=== PATIENT | male | born 1925 | race Caucasian/White ===

== ENCOUNTER 2016-07-30 11:37 | Observation (INO) | payer MEDICARE ==
[~2016-07-30] VITALS: Ht 177.8 cm; Wt 111.5 kg
[~2016-07-30 11:37] MED LIST: ADVA100A INH; ASPI81TA67 PO; FLUT1SPR22 EACH NARE; FURO40TA PO; IPRASOL INH; LISI-519 PO; MULT1TAB84 PO; OMEP20TA PO
[2016-07-30 11:38] VITALS: BP 142/69; PULSE 94; RESP 20; TEMP 97.5; O2SAT 97
[2016-07-30 11:56] VITALS: BP 114/71; PULSE 78; RESP 28; O2SAT 95
[2016-07-30] MEDS ORDERED: SODIUM CHLORIDE 0.9% FLUSH 10 ML FLUSH IVF PRN (12:00)
--- NOTE | 2016-07-30 12:01 | PD ---
HPI Chief Complaint: chest pain Time Seen by Provider: 11:48 Travel History International Travel<30 days: No Contact w/Intl Traveler<30days: No Traveled to known affect area: No History of Present Illness HPI 89-year-old male with history of heart block with pacemaker placement, sleep apnea, presents for evaluation of left-sided chest pain. Symptoms started 2 days ago. He describes it as a pulsating pain localized in left side of his chest a few inches inferior to his pacemaker which comes and goes. The pain seems to be reproduced with inspiration. Nothing seems to make it better. He is not currently experiencing any pain as we speak. He called his cardiologists office, Dr. Garcia, who recommended that he come here for further evaluation. He does endorse slight dyspnea as well. Denies any cough or congestion, nausea or vomiting, diaphoresis, recent travel, recent surgery, he does report that in April 2016 his pacemaker was replaced. Denies any history of DVT or PE. He has no other complaints at this time. PFSH Past Medical History Asthma: No Heart Rhythm Problems: Yes (PACEMAKER) Cancer: No Cardiovascular Problems: Yes High Cholesterol: Yes Chest Pain: No Congestive Heart Failure: No COPD: No Diabetes: No Diminished Hearing: Yes Endocrine: No Gastrointestinal Disorders: Yes (GALLBLADDER REMOVED, GERD) GERD: Yes Glaucoma: No Genitourinary: Yes (ENLARGED PROSTATE) Hepatitis: No Hiatal Hernia: No Hypertension: No Musculoskeletal: Yes (ARTHRITIS IN HANDS/SHOULDERS/KNEES, FUSED VERTEBRAE) Neurologic: Yes (INOPERABLE BRAIN TUMOR) Psychiatric: No Reproductive: Yes (BPH) Respiratory: Yes Immunizations Current: No Sleep Apnea: Yes (USES CPAP AT HOME) Thyroid Disease: No Past Surgical History Body Medical Devices: PACEMAKER Cardiac Surgery: Yes (PACEMAKER) Cholecystectomy: Yes Joint Replacement: Yes (BILATERAL KNEE) Pacemaker: Yes Other Surgery: Yes (SEVERAL BACK SURGERIES) Social History Alcohol Use: No Tobacco Use: No (QUIT 40 YEARS AGO) Substance Use: No Allergies-Medications (Allergen,Severity, Reaction): Coded Allergies: Celebrex (Verified Allergy, Severe, SWELLING, 04/22/16) Penicillin (Verified Allergy, Severe, HIVES, 04/22/16) Sulfa (Verified Allergy, Severe, HIVES, 04/22/16) Codeine (Verified Adverse Reaction, Severe, Hallucinations, 04/22/16) Reported Meds & Prescriptions Reported Meds & Active Scripts Active Reported Multivitamin Adults (Multiple Vitamins W/ Minerals) 1 Tab 1 Tab PO DAILY Omeprazole 20 Mg Tab 20 Mg PO DAILY Duoneb (Ipratropium-Albuterol Neb) 0.5-2.5 Mg/3 Ml Neb 1 Nebule INH QID Advair Diskus Inh (Fluticasone-Salmeterol Inh) 100-50 Mcg/Blist Aer 1 Puff INH BID Rinse mouth after use. Furosemide 40 Mg Tab 40 Mg PO DAILY Lisinopril 5 Mg Tab 2.5 Mg PO DAILY Aspirin DR (Aspirin) 81 Mg Tabdr 81 Mg PO DAILY Review of Systems Except as stated in HPI: all other systems reviewed are Neg Physical Exam Narrative GENERAL: Pleasant well-developed well-nourished male in no acute distress SKIN: Warm and dry. HEAD: Atraumatic. Normocephalic. EYES: Pupils equal and round. No scleral icterus. No injection or drainage. ENT: No nasal bleeding or discharge. Mucous membranes pink and moist. NECK: Trachea midline. No JVD. CARDIOVASCULAR: Regular rate and rhythm. No murmur appreciated. RESPIRATORY: No accessory muscle use. Clear to auscultation. Breath sounds equal bilaterally. GASTROINTESTINAL: Abdomen soft, non-tender, nondistended. Hepatic and splenic margins not palpable. MUSCULOSKELETAL: No obvious deformities. No reproducible chest wall tenderness to palpation. No lower extremity tenderness to palpation. No asymmetrical lower extremity edema. NEUROLOGICAL: Awake and alert. No obvious cranial nerve deficits. Motor grossly within normal limits. Normal speech. PSYCHIATRIC: Appropriate mood and affect; insight and judgment normal. Data Data Last Documented VS Vital Signs Date Time Temp Pulse Resp B/P Pulse Ox O2 Delivery O2 Flow Rate FiO2 07/30/16 12:15 82 28 Room Air 07/30/16 11:56 114/71 95 07/30/16 11:38 97.5 Orders Electrocardiogram (07/30/16 ) Basic Metabolic Panel (Bmp) (07/30/16 11:57) B-Type Natriuretic Peptide (07/30/16 11:57) Ckmb (Isoenzyme) Profile (07/30/16 11:57) Complete Blood Count With Diff (07/30/16 11:57) D-Dimer (07/30/16 11:57) Magnesium (Mg) (07/30/16 11:57) Prothrombin Time / Inr (Pt) (07/30/16 11:57) Act Partial Throm Time (Ptt) (07/30/16 11:57) Troponin I (07/30/16 11:57) Chest, Single Ap (07/30/16 11:57) Ecg Monitoring (07/30/16 11:57) Bilateral Bp Monitoring (07/30/16 11:57) Iv Access Insert/Monitor (07/30/16 11:57) Oximetry (07/30/16 11:57) Oxygen Administration (07/30/16 11:57) Sodium Chloride 0.9% Flush (Ns Flush) (07/30/16 12:00) Ct Pulmonary Angiogram (07/30/16 12:49) CKMB (07/30/16 12:10) CKMB% (07/30/16 12:10) Iohexol 350 Inj (Omnipaque 350 Inj) (07/30/16 14:36) Labs Laboratory Tests Test 07/30/16 12:10 White Blood Count 6.0 TH/MM3 Red Blood Count 5.06 MIL/MM3 Hemoglobin 14.2 GM/DL Hematocrit 43.0 % Mean Corpuscular Volume 85.0 FL Mean Corpuscular Hemoglobin 28.1 PG Mean Corpuscular Hemoglobin 33.1 % Concent Red Cell Distribution Width 16.7 % Platelet Count 144 TH/MM3 Mean Platelet Volume 8.1 FL Neutrophils (%) (Auto) 65.5 % Lymphocytes (%) (Auto) 22.6 % Monocytes (%) (Auto) 8.2 % Eosinophils (%) (Auto) 3.2 % Basophils (%) (Auto) 0.5 % Neutrophils # (Auto) 3.9 TH/MM3 Lymphocytes # (Auto) 1.4 TH/MM3 Monocytes # (Auto) 0.5 TH/MM3 Eosinophils # (Auto) 0.2 TH/MM3 Basophils # (Auto) 0.0 TH/MM3 CBC Comment DIFF FINAL Differential Comment Prothrombin Time 11.4 SEC Prothromb Time International 1.0 RATIO Ratio Activated Partial 29.9 SEC Thromboplast Time D-Dimer Quantitative (PE/DVT) 2.51 MG/L FEU Sodium Level 137 MEQ/L Potassium Level 4.3 MEQ/L Chloride Level 100 MEQ/L Carbon Dioxide Level 31.3 MEQ/L Anion Gap 6 MEQ/L Blood Urea Nitrogen 22 MG/DL Creatinine 1.33 MG/DL Estimat Glomerular Filtration 51 ML/MIN Rate Random Glucose 133 MG/DL Calcium Level 9.4 MG/DL Magnesium Level 2.2 MG/DL Total Creatine Kinase 268 U/L Creatine Kinase MB 6.6 NG/ML Troponin I 0.04 NG/ML B-Type Natriuretic Peptide 23 PG/ML MDM Medical Decision Making Medical Screen Exam Complete: Yes Emergency Medical Condition: Yes Medical Record Reviewed: Yes Interpretation(s) EKG reveals electronically paced rhythm. CBC platelet count 144 otherwise unremarkable D-Dimer 2.51 Differential Diagnosis Pleuritic left-sided chest pain for 2 days. Differential diagnosis includes costochondritis, pain from pacemaker implantation, pneumothorax, pneumonia, urinary embolism, acute coronary syndrome, dissection, pericarditis, myocarditis Narrative Course 89-year-old male with a pleuritic left-sided chest pain for 2 days. IV established, basic lab work is been ordered, chest x-ray, 12-lead EKG, ECG monitoring pulse oximetry were established. Given the pleuritic nature of his pain a d-dimer was sent and it is elevated at 2.[address] pulmonary angiogram has been ordered. Discussed with my attending agrees with plan of care. The patient's laboratory imaging studies have been reviewed. His CT pulmonary angiogram is negative for pulmonary embolism. His troponin is 0.04 and his CK- MB is 6.6. At this point in time the plan is to admit the patient into the chest pain center for serial cardiac enzymes and rule out purposes. He is agreeable. Procedures EKG Prior to Arrival: Yes Diagnosis Primary Impression: Chest pain Qualified Code: R07.9 - Chest pain, unspecified type Admitting Information Admitting Physician Requests: German Perez Jul 30, 2016 12:01
[2016-07-30 12:31] LABS: AUTOMATED NEUTROPHIL # 3.9 TH/MM3 (1.8-7.7); BASOPHIL % 0.5 % (0.0-2.0); EOSINOPHIL # 0.2 TH/MM3 (0-0.4); EOSINOPHIL % 3.2 % (0.0-4.0); HEMO FLAGS DIFF FINAL; LYMPH % 22.6 % (9.0-44.0); LYMPHOCYTE # 1.4 TH/MM3 (1.0-4.8); MEAN CORPUSCULAR HEMOGLOBIN 28.1 PG (27.0-34.0); MEAN CORPUSCULAR HGB CONC 33.1 % (32.0-36.0); MONO % 8.2 % (0.0-8.0); NEUT % 65.5 % (16.0-70.0); PLATELET COUNT 144 TH/MM3 (150-450); RED BLOOD COUNT 5.06 MIL/MM3 (4.50-5.90); RED CELL DISTRIBUTION WIDTH 16.7 % (11.6-17.2)
[2016-07-30 12:43] LABS: APTT (PATIENT) 29.9 SEC (24.3-30.1); PROTHROMBIN TIME - PATIENT 11.4 SEC (9.8-11.6)
[2016-07-30 13:08] LABS: ANION GAP 6 MEQ/L (5-15); BICARBONATE 31.3 MEQ/L (21.0-32.0); BLOOD UREA NITROGEN 22 MG/DL (7-18); CHLORIDE 100 MEQ/L (98-107); GLOMERULAR FILTRATION RATE 51 ML/MIN (>89); MAGNESIUM 2.2 MG/DL (1.5-2.5); POTASSIUM 4.3 MEQ/L (3.5-5.1); SODIUM (NA) 137 MEQ/L (136-145)
[2016-07-30 13:12] LABS: CREATINE KINASE 268 U/L (39-308)
--- NOTE | 2016-07-30 13:18 | RADRPT ---
EXAM DATE/TIME: 07/30/2016 12:22 [facility] COMPARISON: CHEST SINGLE AP, May 29, 2014, 12:39. INDICATIONS : Patient states chest pain started two days ago. MEDICAL HISTORY : None. SURGICAL HISTORY : Pacemaker. ENCOUNTER: Initial ACUITY: 2 days PAIN SCORE: 3/10 LOCATION: Left chest FINDINGS: Pacemaker is in good position. The heart si minimally enlarged. Pulmonary vascularity is normal. T here is mild elevation of the right hemidiaphragm. CONCLUSION: 1. Pacemaker, mild compensated cardiomegaly. 2. Minimal elevation of the right hemidiaphragm, stable in the interval. Tim Bahena MD FACR on July 30, 2016 at 13:04 Board Certified Radiologist. This report was verified electronically.
[2016-07-30 13:24] LABS: CKMB 6.6 NG/ML (0.5-3.6)
[2016-07-30] MEDS ORDERED: IOHEXOL 350 MG/ML 10 ML VIAL (for RAD DIAG) IV ONE (14:36)
--- NOTE | 2016-07-30 14:42 | RADRPT ---
EXAM DATE/TIME: 07/30/2016 14:08 [facility] COMPARISON: CT PULMONARY ANGIOGRAM, May 29, 2014, 14:34. INDICATIONS : Chest pain IV CONTRAST: 54 cc Omnipaque 350 (iohexol) IV RADIATION DOSE: 35.24 CTDIvol (mGy) MEDICAL HISTORY : Cardiovascular disease. Brain tumor SURGICAL HISTORY : Cholecystectomy. Pacemaker. ENCOUNTER: Initial ACUITY: 1 day PAIN SCALE: 5/10 LOCATION: chest TECHNIQUE: Volumetric scanning of the chest was performed using a pulmonary embolism protocol MIP images were re constructed. Using automated exposure control and adjustment of the mA and/or kV according to patien t size, radiation dose was kept as low as reasonably achievable to obtain optimal diagnostic quality images. FINDINGS: PULMONARY ARTERIES: No filling defects are seen in the pulmonary arteries through the segmental level. LUNGS: Diffuse chronic interstitial changes along the subpleural aspect the lungs bilaterally. Calcified gra nuloma within the left upper lobe. Bronchiectasis involving the basilar segments more pronounced on t he right. PLEURAE: There is no pleural thickening or pleural effusion. MEDIASTINUM: The heart is normal in size. Pulmonary arteries and aorta are normal in caliber. Significant calcifie d atherosclerotic plaque involving the coronary arteries and aorta. No adenopathy. MUSCULOSKELETAL: Within normal limits for patient age. MISCELLANEOUS: The visualized upper abdominal organs demonstrate no acute abnormality. CONCLUSION: 1. No acute pulmonary emboli. 2. Calcified atherosclerotic plaque of the coronary arteries. 3. Pronounced chronic interstitial fibrotic change involving the lungs. This has progressed from the prior study. Cliff Storm Jr., MD on July 30, 2016 at 14:33 Board Certified Radiologist. This report was verified electronically.
--- NOTE | 2016-07-30 16:00 | HHI.HP ---
[facility] Primary Care Physician Mohsen Cates MD Chief Complaint Chest pain History of Present Illness This is an 89-year-old male with history of pacemaker been replaced April 2016, hypertension, COPD presenting to the ED complaining of a left-sided chest discomfort. He states that he has had a discomfort just below the pacemaker that has been present ever since it was replaced April 2016. He describes it as a sharp pain and has occurred about every 2-3 days lasting about 10 minutes at a time. However 2 days ago the discomfort intensified severely and lasts about 20 minutes. After that discomfort resolved had a residual very mild discomfort as or time describing that persisted throughout yesterday and until today. The discomfort suddenly went away on its own after he laid down in the hospital bed. The discomfort has not recurred. He had been short of breath at times with it. No nausea or diaphoresis. He does follow Dr. Garcia of cardiology. Cannot recall last stress test. Denies recent illness. Denies fevers or chills. Review of Systems General: Patient denies fevers, chills recent, and recent travel HEENT: Patient denies headache, sore throat, difficulty swallowing. Cardiovascular: Has the chest discomfort as mentioned above. Denies sensation of heart beating rapidly or irregularly. No syncope. Denies diaphoresis. Respiratory: He does have some chronic shortness of breath but believes his reading was little more labored with his discomfort. Denies inspirational chest discomfort. Denies coughing wheezing or hemoptysis. GI: Patient denies nausea, vomiting, diarrhea, abdominal pain, bloody stools. Musculoskeletal: Patient denies joint pain or edema. Denies calf pain or edema. Neurovascular: Patient denies numbness, tingling, weakness in extremities. Denies headache. Endocrine: Denies polyuria and polydipsia. Hematologic: Denies easy bruising. Skin: Denies rash or itching. Past Family Social History Allergies: Coded Allergies: Celebrex (Verified Allergy, Severe, SWELLING, 04/22/16) Penicillin (Verified Allergy, Severe, HIVES, 04/22/16) Sulfa (Verified Allergy, Severe, HIVES, 04/22/16) Codeine (Verified Adverse Reaction, Severe, Hallucinations, 04/22/16) Past Medical History Complete heart block with a pacemaker. Pacemaker changed April 2016. Hypertension, COPD, GERD. Denies diabetes. Past Surgical History Pacemaker. Cholecystectomy. Bilateral knees. He's had back surgeries. Reported Medications Reported Meds & Active Scripts Active Reported Multivitamin Adults (Multiple Vitamins W/ Minerals) 1 Tab 1 Tab PO DAILY Omeprazole 20 Mg Tab 20 Mg PO DAILY Duoneb (Ipratropium-Albuterol Neb) 0.5-2.5 Mg/3 Ml Neb 1 Nebule INH QID Advair Diskus Inh (Fluticasone-Salmeterol Inh) 100-50 Mcg/Blist Aer 1 Puff INH BID Rinse mouth after use. Furosemide 40 Mg Tab 40 Mg PO DAILY Lisinopril 5 Mg Tab 2.5 Mg PO DAILY Aspirin DR (Aspirin) 81 Mg Tabdr 81 Mg PO DAILY Active Ordered Medications Current Medications Medications (Trade) Dose Ordered Sig/Merly Route Start Time Stop Time Status Last Admin (NS Flush) 2 ml UNSCH PRN IVF 07/30/16 12:00 Family History His brother had CAD. Social History He quit smoking 40 years ago prior that he smoked on average 2 pack of cigarettes daily for 30 years. He denies alcohol or illicit drugs. He is . Physical Exam Vital Signs Vital Signs Date Time Temp Pulse Resp B/P Pulse Ox O2 Delivery O2 Flow Rate FiO2 07/30/16 12:15 82 28 Room Air 07/30/16 11:56 78 28 114/71 95 07/30/16 11:38 97.5 94 20 142/69 97 Room Air Physical Exam GENERAL: This is a well-nourished, well-developed patient, in no apparent distress. Patient speaks in clear complete sentences. Patient is pleasant. His and daughter are also at the bedside. HEENT: Head is atraumatic and normocephalic. Neck is supple without lymphadenopathy and trachea is midline. No JVD or carotid bruits. CARDIOVASCULAR: Regular rate and rhythm without murmurs, gallops, or rubs. RESPIRATORY: Chest wall was nontender to palpate. The area of the pacemaker was nontender and there is no erythema. However he was able to reproduce the discomfort just beneath the pacemaker when he brought his left arm over across his chest. This reproduced the same type of discomfort he has been having. Clear to auscultation. Breath sounds equal bilaterally. No wheezes, rales, or rhonchi. No use of accessory muscles. GASTROINTESTINAL: Abdomen is nontender, nondistended. Abdomen soft. No obvious pulsatile mass or bruit. No CVA tenderness. Strong femoral pulses bilaterally. Normal bowel sounds in all quadrants. MUSCULOSKELETAL: Patient is moving upper and lower extremities freely. No calf tenderness or edema, no Homans sign. Strong pulses in upper and lower extremities. NEUROLOGICAL: Patient is alert and oriented. Cranial nerves 2-12 are grossly intact. No focal deficits and speech is clear. SKIN: No rash and turgor is normal. Laboratory Laboratory Tests Test 07/30/16 12:10 White Blood Count 6.0 Red Blood Count 5.06 Hemoglobin 14.2 Hematocrit 43.0 Mean Corpuscular Volume 85.0 Mean Corpuscular Hemoglobin 28.1 Mean Corpuscular Hemoglobin 33.1 Concent Red Cell Distribution Width 16.7 Platelet Count 144 Mean Platelet Volume 8.1 Neutrophils (%) (Auto) 65.5 Lymphocytes (%) (Auto) 22.6 Monocytes (%) (Auto) 8.2 Eosinophils (%) (Auto) 3.2 Basophils (%) (Auto) 0.5 Neutrophils # (Auto) 3.9 Lymphocytes # (Auto) 1.4 Monocytes # (Auto) 0.5 Eosinophils # (Auto) 0.2 Basophils # (Auto) 0.0 CBC Comment DIFF FINAL Differential Comment Prothrombin Time 11.4 Prothromb Time International 1.0 Ratio Activated Partial 29.9 Thromboplast Time D-Dimer Quantitative (PE/DVT) 2.51 Sodium Level 137 Potassium Level 4.3 Chloride Level 100 Carbon Dioxide Level 31.3 Anion Gap 6 Blood Urea Nitrogen 22 Creatinine 1.33 Estimat Glomerular Filtration 51 Rate Random Glucose 133 Calcium Level 9.4 Magnesium Level 2.2 Total Creatine Kinase 268 Creatine Kinase MB 6.6 Troponin I 0.04 B-Type Natriuretic Peptide 23 Result Diagram: 07/30/16 1210 07/30/16 1210 Imaging Last [address] Angiography 07/30/16 1249 Signed Impressions: Service Date/Time: Saturday, July 30, 2016 14:08 - CONCLUSION: 1. No acute pulmonary emboli. 2. Calcified atherosclerotic plaque of the coronary arteries. 3. Pronounced chronic interstitial fibrotic change involving the lungs. This has progressed from the prior study. Cliff Storm Jr., MD Course Initial EKG is ventricularly paced. Assessment and Plan Assessment and Plan * Chest pain: Patient will continue to have serial cardiac enzymes and EKGs for ruling out purposes. He will be evaluated by Dr. Gilmer Yip of cardiology in the chest pain center and I also will speak with the patient's income tax administrator Dr. Garcia and afterwards will determine the further plan of treatment. * Hypertension: Continue current medication. * COPD: Continue her medication. * GERD: Continue current medication. Patient is stable at this time. He is agreeable to this plan. Jamal Garcia Jul 30, 2016 16:00
[2016-07-30] MEDS ORDERED: cloNIDine HCL 0.1 MG TAB PO PRN (16:15)
[2016-07-30] MEDS ORDERED: ACETAMINOPHEN 500 MG CPLT PO PRN (16:15)
[2016-07-30] MEDS ORDERED: SODIUM CHLORIDE 0.9% FLUSH 5 ML FLUSH IVF PRN (16:15)
[2016-07-30] MEDS ORDERED: ONDANSETRON HCL 4 MG/2 ML VIAL IV PRN (16:15)
[2016-07-30] MEDS ORDERED: RESP: ALBUTEROL 2.5 MG/IPRATROPIUM 0.5 MG NEB (PRN) INH (16:15)
[2016-07-30 17:00] VITALS: BP 138/68; PULSE 78; RESP 20
[2016-07-30 17:25] LABS: CREATINE KINASE 255 U/L (39-308)
[2016-07-30 17:37] LABS: CKMB 5.6 NG/ML (0.5-3.6)
[2016-07-30 18:35] VITALS: BP 155/84; PULSE 81; RESP 20; TEMP 98; O2SAT 93
[2016-07-30 19:05] LABS: CREATINE KINASE 283 U/L (39-308)
[2016-07-30 19:18] LABS: CKMB 5.9 NG/ML (0.5-3.6)
[2016-07-30] MEDS: SODIUM CHLORIDE 0.9% FLUSH 5 ML FLUSH IVF SCH (21:00)
[2016-07-30] MEDS: BUDESONIDE-FORMOTEROL 80/4.5 MCG INHALER INH SCH (21:00)
[2016-07-31 00:58] VITALS: BP 171/86; PULSE 60; RESP 18; TEMP 97.4; O2SAT 95
[2016-07-31 04:11] VITALS: BP 127/75; PULSE 69; RESP 16; TEMP 97.8; O2SAT 92
[2016-07-31 07:34] VITALS: BP 154/83; PULSE 67; RESP 22; TEMP 97.6; O2SAT 94
[2016-07-31] MEDS: SODIUM CHLORIDE 0.9% FLUSH 5 ML FLUSH IVF SCH (09:00)
[2016-07-31] MEDS ORDERED: ASPIRIN 325 MG TAB PO SCH (09:00)
[2016-07-31] MEDS ORDERED: PANTOPRAZOLE SOD 20 MG DELAYED RELEASE TAB PO SCH (09:00)
[2016-07-31] MEDS ORDERED: LISINOPRIL 5 MG TAB PO SCH (09:00)
[2016-07-31] MEDS ORDERED: FUROSEMIDE 40 MG TAB PO SCH (09:00)
[2016-07-31] MEDS ORDERED: MULTIVITAMINS/MINERALS THERAPEUTIC TAB PO SCH (09:00)
[2016-07-31] MEDS: BUDESONIDE-FORMOTEROL 80/4.5 MCG INHALER INH SCH ×2 (09:00→12:41)
[2016-07-31] MEDS ORDERED: REGADENOSON INJ 0.4 MG/5 ML SYR ONE (09:41)
[2016-07-31 12:10] VITALS: BP 124/69; PULSE 77; RESP 22; TEMP 97.6; O2SAT 93
--- NOTE | 2016-07-31 12:32 | RADRPT ---
EXAM DATE/TIME: 07/31/2016 09:19 [facility] COMPARISON: No previous studies available for comparison. INDICATIONS : Left chest pain with dyspnea for 2 days. Angina. DOSE: 34.8 mCi Tc99m Myoview at stress. 11.0 mCi Tc99m Myoview at rest. 0.4 mg Lexiscan STRESS SYMPTOMS: Abdomen pain. EJECTION FRACTION: 64% MEDICAL HISTORY : Hypercholesterolemia. Gastroesophageal reflux disease. SURGICAL HISTORY : Pacemaker. Cholecystectomy. ENCOUNTER: Initial ACUITY: 2 days PAIN SCALE: 6/10 LOCATION: Left chest TECHNIQUE: The patient underwent pharmacologic stress with infusion of prescribed dose. Continuous ECG tracing was monitored during stress. Gated SPECT imaging was performed after stress and conventional SPECT i maging was performed at rest. The examination was performed on a SPECT/CT scanner, both attenuation and non-corrected datasets were reviewed. FINDINGS: DISTRIBUTION: The maximum perfused segment at stress is in the septal wall. PERFUSION STUDY: The pattern of perfusion at stress shows 20-30% redistribution in portions of the anteroseptal wall a s well as the inferior wall. GATED STUDY: There is intact wall motion and thickening without hypokinetic or dyskinetic segments. CONCLUSION: 1. 20-30% redistribution in portions of the anterolateral and inferior boswell concerning for ischemia. 2. Axilla wall motion throughout with an estimated ejection fraction of 64% RISK CATEGORY: Intermediate (1-3% Annual Mortality Rate) Jhon Arango MD on July 31, 2016 at 12:16 Board Certified Radiologist. This report was verified electronically.
[2016-07-31] MEDS ORDERED: RESP: ALBUTEROL 2.5 MG/3 ML NEB (PRN) NEB (12:45)
--- NOTE | 2016-07-31 15:06 | PD.CARD.PN ---
Subjective Subjective Remarks No complaints, no chest pain throughout evening. Objective Vital Signs / I&O Vital Signs Date Time Temp Pulse Resp B/P Pulse Ox O2 Delivery O2 Flow Rate FiO2 07/31/16 12:10 97.6 77 22 124/69 93 07/31/16 07:34 97.6 67 22 154/83 94 07/31/16 04:11 97.8 69 16 127/75 92 07/31/16 00:58 97.4 60 18 171/86 95 07/30/16 18:35 98.0 81 20 155/84 93 07/30/16 17:46 Nasal Cannula 07/30/16 17:00 78 20 138/68 Room Air Physical Exam GENERAL: Alert WN, WD, NAD, pleasant CV: RRR, without murmur, rub, gallop, no JVD, S1-S2 no S3-S4. RESP: Clear lungs throughout bilateral, no crackles, wheeze, rhonchi, symmetrical chest rise, nonlabored, able to speak in full sentences PSYCH: A+O 3, pleasant affect, appropriate speech, appropriate mood and affect , insight and judgment Laboratory Laboratory Tests Test 07/30/16 07/30/16 15:54 18:23 Total Creatine Kinase 255 U/L 283 U/L Creatine Kinase MB 5.6 NG/ML 5.9 NG/ML Troponin I 0.05 NG/ML 0.04 NG/ML Assessment and Plan Assessment and Plan #1 Chest painLexi scan completed. Results with patient's wirer, Dr. Garcia. Dr. Garcia and will treat patient medically at this time. Imdur 30 mg daily and Metroprolol tartrate 25 mg twice a day. Follow in his office in one week. Yudelka Garcia Jul 31, 2016 15:06
--- NOTE | 2016-07-31 15:12 | HHI.DCPOC ---
Discharge Care Plan Diagnosis: (1) Chest pain (2) COPD (chronic obstructive pulmonary disease) (3) Hypertension Goals to Promote Your Health * To prevent worsening of your condition and complications * To maintain your health at the optimal level Directions to Meet Your Goals Take your medications as prescribed Follow your dietary instruction Follow activity as directed Keep your appointments as scheduled Take your immunizations and boosters as scheduled If your symptoms worsen call your PCP, if no PCP go to Urgent Care Center or Emergency Room Smoking is Dangerous to Your Health. Avoid second hand smoke Call the 24-hour hour crisis hotline for domestic abuse at Yudelka Garcia Jul 31, 2016 15:12
[2016-07-31] MEDS ORDERED: ISOS30TA3 PO (15:15)
[2016-07-31] MEDS ORDERED: METO25TA3 PO (15:15)
--- NOTE | 2016-07-31 17:35 | TR ---
Date Performed: 07/31/2016 Time Performed: 09:51:36 DOCTOR: Adriana Fleming DRUG LIST: CLINICAL HISTORY: REASON FOR TEST: CHEST PAIN REASON FOR ENDING: OBSERVATION: CONCLUSION: Lexiscan stress test was performed under standard four minute protocol. Radionuclid e was injected one minute prior to ending the test. No electrocardiographic abormalities were present to suggest ischemia. Nuclear imaging and interpretation are pending. COMMENTS:
--- NOTE | 2016-07-31 21:38 | EKG ---
Date Performed: 07/30/2016 Time Performed: 19:32:50 PTAGE: 89 years EKG: ELECTRONIC VENTRICULAR PACEMAKER ABNORMAL RHYTHM ECG Since PREVIOUS TRACING , no significant change noted PREVIOUS TRACIN07/30/2016 15.51 DOCTOR: Adriana Fleming Interpretating Date/Time 07/31/2016 21:37:40
--- NOTE | 2016-08-01 14:33 | EKG ---
Date Performed: 07/30/2016 Time Performed: 15:51:53 PTAGE: 89 years EKG: A sense, V paced Since PREVIOUS TRACING , no significant change noted PREVIOUS TRACIN07/30/2016 11.57 DOCTOR: Adriana Fleming Interpretating Date/Time 08/01/2016 14:30:49
--- NOTE | 2016-08-01 14:34 | EKG ---
Date Performed: 07/30/2016 Time Performed: 11:57:22 PTAGE: 89 years EKG: A sense, V paced PREVIOUS TRACING : 04/22/2016 11.24 DOCTOR: Adriana Fleming Interpretating Date/Time 08/01/2016 14:33:39
== END 2016-07-31 16:41 | disposition home or self-care (01) ==
LOC: NEPA 11:37 → NEDA 14:48 → NEPHCDU 18:26
PROVIDERS: ADMIT Internal Medicine Cardiovascular Disease; ATTEND Internal Medicine Cardiovascular Disease
DX: R07.9 Chest pain, unspecified (principal); Z95.0 Presence of cardiac pacemaker; G47.30 Sleep apnea, unspecified; I44.2 Atrioventricular block, complete; R06.00 Dyspnea, unspecified; E78.00 Pure hypercholesterolemia, unspecified; K21.9 Gastro-esophageal reflux disease without esophagitis; N40.0 Benign prostatic hyperplasia without lower urinary tract symptoms; Z98.1 Arthrodesis status; M19.90 Unspecified osteoarthritis, unspecified site; D49.6 Neoplasm of unspecified behavior of brain; J44.9 Chronic obstructive pulmonary disease, unspecified; I10 Essential (primary) hypertension; Z87.891 Personal history of nicotine dependence; I25.10 Atherosclerotic heart disease of native coronary artery without angina pectoris
CPT/HCPCS: 71010; 71275; 78452; 80048; 82550; 82552; 83735; 83880; 84484; 85025; 85379; 85610; 85730; 93005; 93017; 99285; A9502; G0378; J2785; Q9967

== ENCOUNTER 2016-09-23 15:38 | Emergency (ER) | payer MEDICARE ==
[~2016-09-23] VITALS: Ht 177.8 cm; Wt 113.6 kg
[~2016-09-23 15:38] MED LIST changes: -FLUT1SPR22 EACH NARE; +ISOS30TA3 PO; +METO25TA3 PO
[2016-09-23 15:43] VITALS: BP 139/86; PULSE 99; RESP 18; TEMP 97.9; O2SAT 93
[2016-09-23] MEDS ORDERED: POTA10CA PO (16:03)
[2016-09-23] MEDS ORDERED: FLUSH INH (16:03)
--- NOTE | 2016-09-23 16:10 | PD ---
HPI Chief Complaint: Nosebleed Time Seen by Provider: 15:59 Travel History International Travel<30 days: No Contact w/Intl Traveler<30days: No Traveled to known affect area: No History of Present Illness HPI 89-year-old male here for evaluation of nosebleed. The patient reports that at approximately 1:30 PM while using the restroom his right naris began to bleed. He applied pressure and stuffed toilet paper up his nose. He takes aspirin 81 mg daily. No other antiplatelets or anticoagulants. He denies trauma. No fevers or recent illness. No history of bleeding disorders. PFSH Past Medical History Hx Anticoagulant Therapy: No Asthma: No Heart Rhythm Problems: Yes (PACEMAKER) Cancer: No Cardiovascular Problems: Yes (PM) High Cholesterol: Yes Chest Pain: No Congestive Heart Failure: No COPD: No Diabetes: No Diminished Hearing: Yes Endocrine: No Gastrointestinal Disorders: Yes (GALLBLADDER REMOVED, GERD) GERD: Yes Glaucoma: No Genitourinary: Yes (ENLARGED PROSTATE) Hepatitis: No Hiatal Hernia: No Hypertension: No Implanted Vascular Access Dvce: Yes Musculoskeletal: Yes (ARTHRITIS IN HANDS/SHOULDERS/KNEES, FUSED VERTEBRAE) Neurologic: Yes (INOPERABLE BRAIN TUMOR) Psychiatric: No Reproductive: Yes (BPH) Respiratory: Yes (COPD ON 2.5 L/NC AT NIGHT) Immunizations Current: No Sleep Apnea: Yes (USES CPAP AT HOME) Thyroid Disease: No Tetanus Vaccination: Unknown Past Surgical History Body Medical Devices: PACEMAKER Cardiac Surgery: Yes (PACEMAKER) Cholecystectomy: Yes Joint Replacement: Yes (BILATERAL KNEE) Pacemaker: Yes Other Surgery: Yes (SEVERAL BACK SURGERIES) Social History Alcohol Use: No Tobacco Use: No (QUIT 40 YEARS AGO) Substance Use: No Allergies-Medications (Allergen,Severity, Reaction): Coded Allergies: Celebrex (Verified Allergy, Severe, SWELLING, 09/23/16) Penicillin (Verified Allergy, Severe, HIVES, 09/23/16) Sulfa (Verified Allergy, Severe, HIVES, 09/23/16) Codeine (Verified Adverse Reaction, Severe, Hallucinations, 09/23/16) Reported Meds & Prescriptions Reported Meds & Active Scripts Active Reported [nasal flush] 1 Unit INH DAILY Potassium Chloride ER (Potassium Chloride) 10 Meq Cap 10 Meq PO DAILY WITH LASIX Multivitamin Adults (Multiple Vitamins W/ Minerals) 1 Tab 1 Tab PO DAILY Omeprazole 20 Mg Tab 20 Mg PO DAILY Duoneb (Ipratropium-Albuterol Neb) 0.5-2.5 Mg/3 Ml Neb 1 Nebule INH QID Advair Diskus Inh (Fluticasone-Salmeterol Inh) 100-50 Mcg/Blist Aer 1 Puff INH BID Rinse mouth after use. Furosemide 40 Mg Tab 40 Mg PO DAILY Aspirin DR (Aspirin) 81 Mg Tabdr 81 Mg PO DAILY Review of Systems Except as stated in HPI: all other systems reviewed are Neg Physical Exam Narrative GENERAL: Well-developed, well-nourished, awake, alert, comfortable, no acute distress. SKIN: Focused skin assessment warm/dry. No pallor. HEAD: Atraumatic. Normocephalic. EYES: Pupils equal and round. No scleral icterus. No injection or drainage. No conjunctival pallor. ENT: Right anterior naris with blood soaked toilet paper. When this is removed , there is dry blood in the anterior near, no active bleeding. No masses. No blood in posterior pharynx. Left naris is normal. NECK: Trachea midline. No JVD. CARDIOVASCULAR: Regular rate and rhythm. PSYCHIATRIC: Appropriate mood and affect; insight and judgment normal. Data Data Last Documented VS Vital Signs Date Time Temp Pulse Resp B/P Pulse Ox O2 Delivery O2 Flow Rate FiO2 09/23/16 16:57 85 16 106/63 95 Room Air 09/23/16 15:43 97.9 [facility] Medical Decision Making Medical Screen Exam Complete: Yes Emergency Medical Condition: Yes Medical Record Reviewed: Yes Differential Diagnosis Epistaxis Narrative Course Vital signs reviewed. Patient has dried blood in right anterior near. Bleeding stopped prior to arrival in the emergency department. He was observed in the emergency department for a little over an hour with no further bleeding. He is stable for discharge home with outpatient follow-up with his primary care physician this week. Patient was informed on when to return to the emergency department. Both the patient and the patient's daughter verbalized understanding and agreement with plan. Diagnosis Primary Impression: Epistaxis Referrals: Primary Care Physician 3 days Additional Instructions: Follow-up with your primary care physician this week. Return to the emergency department for worsening symptoms or any other concerns. Disposition: 01 DISCHARGE HOME Condition: Stable Greg Phillips MD September 23, 2016 16:10
[2016-09-23 16:57] VITALS: BP 106/63; PULSE 85; RESP 16; O2SAT 95
== END 2016-09-23 17:32 | disposition home or self-care (01) ==
LOC: PHED 15:38
DX: R04.0 Epistaxis (principal); E78.00 Pure hypercholesterolemia, unspecified; K21.9 Gastro-esophageal reflux disease without esophagitis; N40.0 Benign prostatic hyperplasia without lower urinary tract symptoms; M19.90 Unspecified osteoarthritis, unspecified site; J44.9 Chronic obstructive pulmonary disease, unspecified; Z79.899 Other long term (current) drug therapy; Z79.82 Long term (current) use of aspirin; Z79.52 Long term (current) use of systemic steroids
CPT/HCPCS: 99282